=== PATIENT | female | born 2000 | race African-American/Black ===

== ENCOUNTER 2021-05-31 09:10 | Emergency (ER) | payer SELFPAY ==
[~2021-05-31] VITALS: Ht 154.9 cm; Wt 93.0 kg
[2021-05-31] MEDS ORDERED: AMOXICILLIN500 M1 PO (10:15)
== END 2021-05-31 10:22 | disposition home or self-care (01) ==
LOC: ER 09:15
DX: J02.0 Streptococcal pharyngitis (principal)
CPT/HCPCS: 83518; 99283